=== PATIENT | male | born 1960 | race Caucasian/White ===

== ENCOUNTER 2016-09-18 20:21 | Emergency (ER) | payer MEDICAID ==
[~2016-09-18] VITALS: Ht 188 cm; Wt 107.0 kg
[2016-09-18] MEDS ORDERED: CALCIUM 600 +1 EAC7 PO (21:30)
[2016-09-18] MEDS ORDERED: CERTAVITE SR-AN1 TAB PO (21:30)
[2016-09-18] MEDS ORDERED: CALCIUM600 MG PO (21:30)
[2016-09-18] MEDS ORDERED: PREVALITE PACKET4 GM PO (21:31)
[2016-09-18] MEDS ORDERED: PROZAC40 MG PO (21:32)
[2016-09-18] MEDS ORDERED: FERROUS SULFAT325 M1 PO (21:32)
[2016-09-18] MEDS ORDERED: FLEXERIL10 MG PO (21:32)
[2016-09-18] MEDS ORDERED: NEURONTIN300 MG PO (21:35)
[2016-09-18] MEDS ORDERED: B-COMPLEX WIT400 MCG PO (21:35)
[2016-09-18] MEDS ORDERED: LACTULOSE20 GM/30 M PO ×2 (21:37)
[2016-09-18] MEDS ORDERED: ZOFRAN ODT4 MG PO (21:38)
[2016-09-18] MEDS ORDERED: OXYCODONE HCL10 MG PO (21:39)
[2016-09-18] MEDS ORDERED: INDERAL10 MG PO (21:39)
[2016-09-18] MEDS ORDERED: PROTONIX40 MG PO (21:39)
[2016-09-18] MEDS ORDERED: XIFAXAN550 MG PO (21:40)
[2016-09-18] MEDS ORDERED: TRAZODONE HCL50 MG PO (21:41)
[2016-09-18] MEDS ORDERED: VITAMIN B-1100 MG PO (21:41)
[2016-09-18] MEDS ORDERED: [UNRECOGNIZED DRUG - OTHER] (21:44)
[2016-09-18] MEDS ORDERED: HYDROCORTISON28.4 G4 TOP (21:46)
== END 2016-09-18 22:25 | disposition short-term general hospital (02) ==
LOC: ER 20:21
DX: S80.211A Abrasion, right knee, initial encounter (principal); S60.411A Abrasion of left index finger, initial encounter; F10.129 Alcohol abuse with intoxication, unspecified; C25.9 Malignant neoplasm of pancreas, unspecified; C79.52 Secondary malignant neoplasm of bone marrow; Z86.19 Personal history of other infectious and parasitic diseases; Y90.8 Blood alcohol level of 240 mg/100 ml or more; Z86.14 Personal history of Methicillin resistant Staphylococcus aureus infection; Z87.891 Personal history of nicotine dependence; W06.XXXA Fall from bed, initial encounter
CPT/HCPCS: G0480; J3411

== ENCOUNTER 2016-09-20 04:55 | Emergency (ER) | payer MEDICAID ==
[~2016-09-20 04:55] MED LIST: B-COMPLEX WIT400 MCG PO; CALCIUM 600 +1 EAC7 PO; CALCIUM600 MG PO; CERTAVITE SR-AN1 TAB PO; FERROUS SULFAT325 M1 PO; FLEXERIL10 MG PO; HYDROCORTISON28.4 G4 TOP; INDERAL10 MG PO; LACTULOSE20 GM/30 M PO; NEURONTIN300 MG PO; OXYCODONE HCL10 MG PO; PREVALITE PACKET4 GM PO; PROTONIX40 MG PO; PROZAC40 MG PO; TRAZODONE HCL50 MG PO; VITAMIN B-1100 MG PO; XIFAXAN550 MG PO; ZOFRAN ODT4 MG PO; [UNRECOGNIZED DRUG - OTHER]
== END 2016-09-20 10:10 | disposition short-term general hospital (02) ==
LOC: ER 04:55
PROC: 0HQ1XZZ Repair Face Skin, External Approach (ICD-10-PCS; principal; 2016-09-20)
DX: S42.491A Other displaced fracture of lower end of right humerus, initial encounter for closed fracture (principal); S53.114A Anterior dislocation of right ulnohumeral joint, initial encounter; S01.81XA Laceration without foreign body of other part of head, initial encounter; S80.11XA Contusion of right lower leg, initial encounter; S80.02XA Contusion of left knee, initial encounter; S40.212A Abrasion of left shoulder, initial encounter; F10.21 Alcohol dependence, in remission; F32.9 Major depressive disorder, single episode, unspecified; F41.9 Anxiety disorder, unspecified; Z86.2 Personal history of diseases of the blood and blood-forming organs and certain disorders involving the immune mechanism; Z23 Encounter for immunization; Z86.19 Personal history of other infectious and parasitic diseases; Z86.14 Personal history of Methicillin resistant Staphylococcus aureus infection; Z59.0 Homelessness; Z88.1 Allergy status to other antibiotic agents; Z88.0 Allergy status to penicillin; W05.0XXA Fall from non-moving wheelchair, initial encounter
CPT/HCPCS: 73552-RT; G0480; J2270

== ENCOUNTER → 2016-10-07 | Outpatient (CLI) | payer MEDICAID | END | disposition short-term general hospital (02) | LOC: CLONCO 12:13 → RAD 12:13 → CLONCO 12:39 | DX: D69.6 Thrombocytopenia, unspecified (principal); K74.60 Unspecified cirrhosis of liver; R16.1 Splenomegaly, not elsewhere classified; K76.6 Portal hypertension ==